=== PATIENT | female | born 1960 | race Caucasian/White ===

== ENCOUNTER 2020-10-26 21:14 | Observation (INO) | payer OTHER ==
[~2020-10-26] VITALS: Ht 160 cm; Wt 108.4 kg
[2020-10-27 02:15] LABS: HEMOGLOBIN 13.4 gm/dl (12.3-15.3); RED BLOOD COUNT 4.98 M/UL (4.00-5.10); WHITE BLOOD COUNT 13.7 K/UL (4.5-11.0)
[2020-10-27 02:45] LABS: BUN/CREATININE RATIO 17 (0-10)
[2020-10-27] MEDS ORDERED: CATAPRES 0.1MG0.1 MG PO (05:43)
[2020-10-27] MEDS ORDERED: COREG 3.125M3.125 MG PO (05:43)
[2020-10-27] MEDS ORDERED: POTASSIUM CHLO20 ME2 PO (05:44)
[2020-10-27] MEDS ORDERED: LISINOPRIL30 MG PO (05:44)
[2020-10-27] MEDS ORDERED: FEROSUL325 MG PO (05:44)
[2020-10-27] MEDS ORDERED: SIMVASTATIN20 MG PO (05:44)
[2020-10-27] MEDS ORDERED: AMLODIPINE BESY10 MG PO (05:44)
[2020-10-27] MEDS ORDERED: HYDROCHLOROTHIA50 MG PO (05:44)
[2020-10-27 11:49] LABS: BUN/CREATININE RATIO 14 (0-10)
[2020-10-28 05:25] LABS: HEMOGLOBIN 11.6 gm/dl (12.3-15.3); WHITE BLOOD COUNT 10.6 K/UL (4.5-11.0)
[2020-10-28 05:29] LABS: RED BLOOD COUNT 4.12 M/UL (4.00-5.10)
--- NOTE | 2020-10-28 10:11 | NUR ---
TELEMETRY NOTIFIED NURSE OF AFIB WITH RVR. MD HAS BEEN NOTIFIED AND AN EKG HAS BEEN ORDERED.
[2020-10-28] MEDS ORDERED: CEFUROXIME500 MG PO (10:12)
[2020-10-28 11:07] LABS: HEMOGLOBIN 12.2 gm/dl (12.3-15.3)
[2020-10-29] MEDS ORDERED: CARVEDILOL3.125 MG PO (08:59)
== END 2020-10-29 13:13 | disposition home or self-care (01) ==
LOC: ER1 21:14 → M/S 10-27 02:27 → CDU 10-27 02:27 → M/S 10-27 05:50 → CDU 10-27 09:19 → M/S 10-27 09:19
PROVIDERS: Anesthesiology; Internal Medicine; Physician Assistant; Physician Assistant Medical; ADMIT Internal Medicine
DX: S32.031A Stable burst fracture of third lumbar vertebra, initial encounter for closed fracture (principal); I69.354 Hemiplegia and hemiparesis following cerebral infarction affecting left non-dominant side; I10 Essential (primary) hypertension; E87.6 Hypokalemia; E66.9 Obesity, unspecified; E78.5 Hyperlipidemia, unspecified; K76.0 Fatty (change of) liver, not elsewhere classified; M19.90 Unspecified osteoarthritis, unspecified site; F17.200 Nicotine dependence, unspecified, uncomplicated; Z20.822 Contact with and (suspected) exposure to COVID-19; Z88.5 Allergy status to narcotic agent; Z88.6 Allergy status to analgesic agent
CPT/HCPCS: ECHO; 36415; 71045; 72131; 72192; 80048; 80053; 81001; 82550; 82553; 82962; 83690; 83735; 84132; 84439; 84443; 84484; 85014; 85018; 85025; 85027; 87077; 87086; 87186; 93005; 93306; 96365; 96372; 96374; 96375; 96376; 97116-GP-CQ; 97162; 97166; 97530; 97530-GP-CQ; 97535; 99285; G0378; J0696; J1100; J1940; J2001; J2250; J2270; J2370; J2405; J2550; J2704; J3010; J3480; J7120; Q9962; Q9967; U0002

== ENCOUNTER → 2021-09-07 | Outpatient (CLI) | payer OTHER ==
[~2021-09-07] MED LIST: AMLODIPINE BESY10 MG PO; CARVEDILOL3.125 MG PO; CATAPRES 0.1MG0.1 MG PO; CEFUROXIME500 MG PO; COREG 3.125M3.125 MG PO; FEROSUL325 MG PO; HYDROCHLOROTHIA50 MG PO; LISINOPRIL30 MG PO; POTASSIUM CHLO20 ME2 PO; SIMVASTATIN20 MG PO
== END ==
LOC: EXRD 15:01 → US 15:01 → EXRD 15:15
DX: Z01.810 Encounter for preprocedural cardiovascular examination (principal); I73.9 Peripheral vascular disease, unspecified; M79.662 Pain in left lower leg
CPT/HCPCS: 93926

== ENCOUNTER → 2021-09-22 | Outpatient (CLI) | payer OTHER | LOC: HEART CORB 10:00 | DX: I11.9 Hypertensive heart disease without heart failure (principal); I48.19 Other persistent atrial fibrillation; I10 Essential (primary) hypertension; I08.1 Rheumatic disorders of both mitral and tricuspid valves | CPT/HCPCS: 93306 ==

== ENCOUNTER → 2021-12-26 | Outpatient (CLI) | payer OTHER | LOC: KOH-I 10:31 | DX: S82.842K Displaced bimalleolar fracture of left lower leg, subsequent encounter for closed fracture with nonunion (principal) | CPT/HCPCS: 73610 ==

== ENCOUNTER 2022-02-07 20:11 | Emergency (ER) | payer OTHER ==
[2022-02-08 03:03] LABS: HEMOGLOBIN 10.8 gm/dl (12.3-15.3); RED BLOOD COUNT 4.13 M/UL (4.00-5.10); WHITE BLOOD COUNT 8.9 K/UL (4.5-11.0)
[2022-02-08 03:50] LABS: BUN/CREATININE RATIO 12 (0-10)
[2022-02-08] MEDS ORDERED: HYDROCODON-ACE1 EAC4 PO (05:06)
== END 2022-02-08 05:20 | disposition home or self-care (01) ==
LOC: ER1 20:11
PROVIDERS: Family Medicine
DX: S32.059A Unspecified fracture of fifth lumbar vertebra, initial encounter for closed fracture (principal); E87.6 Hypokalemia; I48.20 Chronic atrial fibrillation, unspecified; G81.94 Hemiplegia, unspecified affecting left nondominant side; E78.5 Hyperlipidemia, unspecified; Z86.73 Personal history of transient ischemic attack (TIA), and cerebral infarction without residual deficits; Z88.5 Allergy status to narcotic agent; W19.XXXA Unspecified fall, initial encounter
CPT/HCPCS: 72131; 80053; 82550; 82553; 83735; 84484; 85025; 93005; 99284